=== PATIENT | male | born 1960 | race Hispanic/Latino ===

== ENCOUNTER 2019-05-30 09:28 | Outpatient (CLI) | payer OTHER ==
[2019-05-30 11:11] LABS: Mean Corpuscular HGB CONC 34.8 g/dL (32.0-36.0); Mean Corpuscular Hemoglobin 32.9 pg (27.0-31.0); Mean Corpuscular Volume 94.5 fL (78.0-98.0); Mean Platelet Volume 9.2 fL (7.4-10.4); Platelet Count 220 thou/uL (130-400); RBC Distribution Width 11.8 % (11.5-14.5); Red Blood Cell (RBC) Count 4.87 mill/uL (4.70-6.10)
[2019-05-30 11:12] LABS: Bacteria/HPF None Seen HPF (None Seen); Bilirubin Negative (Negative); Blood, Urine Negative (Negative); Clarity Clear (Clear); Glucose, Urine (Dipstick) Normal (Negative); Leukocyte Negative Leu/uL (Negative); Nitrite Negative (Negative); Protein, Urine (Dipstick) Negative (Neg-Trace); RBC/HPF 0-3 HPF (0-3); Squamous Epithelial None Seen HPF (0-3); Urobilinogen Normal mg/dL (Less than 2); WBC/HPF 0-3 HPF (0-3)
[2019-05-30 11:16] LABS: INR-International Normal Ratio 0.9; PTT 25.2 SEC (22.9-36.1); Prothrombin Time 12.1 SEC (12.0-14.7)
[2019-05-30 11:25] LABS: Anion Gap 15 mmol/L (10-20); BUN (Urea Nitrogen) 12 mg/dL (8.4-25.7); Calc. Creatinine Clearance 0 mL/min (70-130); Calcium 9.9 mg/dL (7.8-10.44); Carbon Dioxide 24 mmol/L (22-29); Chloride 105 mmol/L (98-107); Estimated GFR-MDRD 70; Glucose 102 mg/dL (70-105); Potassium 4.2 mmol/L (3.5-5.1); Sodium 140 mmol/L (136-145)
== END 2019-05-30 09:29 | disposition home or self-care (01) ==
LOC: LABBT 09:28
PROVIDERS: ATTEND Urology
DX: Z01.818 Encounter for other preprocedural examination (principal); N40.0 Benign prostatic hyperplasia without lower urinary tract symptoms
CPT/HCPCS: 80048; 81001; 85027; 85610; 85730; 87086; 93005; 93010

== ENCOUNTER 2019-06-03 06:39 | Day surgery (SDC) | payer OTHER ==
[2019-05-30 09:48] VITALS: BMI 29.1
[2019-06-03] MEDS ORDERED: Levofloxacin 500 mg/D5W 100 ml Premix Bag ONE (07:09)
[2019-06-03] MEDS ORDERED: Fentanyl 100 MCG/2 ML VIAL ONE (09:08)
[2019-06-03] MEDS ORDERED: Propofol 500 MG/50 ML VIAL ONE (09:08)
[2019-06-03] MEDS ORDERED: Phenazopyridine HCl 97.5 MG TABLET ONE (10:17)
--- NOTE | 2019-06-03 11:33 | OP ---
DATE OF PROCEDURE: 06/03/2019 SERVICE: Urology. PREOPERATIVE DIAGNOSIS: BPH with urinary obstruction. POSTOPERATIVE DIAGNOSIS: BPH with urinary obstruction. PROCEDURE PERFORMED: UroLift with six implants. INDICATION FOR PROCEDURE: Mr. Rodrigues is a 59-year-old male, who initially presented to me for voiding problems. He is currently not taking any prostate medications nor does he want to. We discussed treatment with the UroLift procedure with risks and benefits discussed and he has agreed to proceed forward. DESCRIPTION OF PROCEDURE: After identification of armband and verification of consent, the patient was brought back to the operating room, where he underwent total intravenous anesthesia. He was then placed in dorsal lithotomy position and prepped and draped in usual sterile fashion. After appropriate time-out, a lubricated 21-Chadian rigid cystoscope with visual obturator was passed through the urethra into the bladder. The prostate did show hypertrophy with some elevation of the bladder neck. The initial implant was first placed at the left side towards the bladder neck by switching out for the UroLift deploying device. This was positioned behind the bladder neck to allow for correct deployment of the steel tab. The safety was taken off after compression was achieved and the blue trigger was squeezed to fire the needle. The dangelo trigger was then squeezed to retract the device and deploy the Nitinol tab. The device was then advanced forward until the white line was in the keyhole and the release to deploy the steel tab performed through the urethral implant. This demonstrated nice compression of the lateral lobe without the steel tab being too close to the bladder neck. This procedure was then repeated again on the right side near the patient's bladder neck and again to apical implants on the left and right. Upon completion, the lateral lobes were completely out of the way, but there was a cat-eye effect with some draping of the anterior prostate. Therefore, we elected to put two more implants in penitentiary between the apical and distal implants anteriorly at 10 and 2 o'clock. This was slightly modified by deploying the needle before compression to avoid bone strikes. This resulted in a nice anterior elevation of the prostate and complete unobstruction of the prostate. Satisfied with the appearance of the prostate at this point, the UroLift device was removed and an 18-Chadian Bailey catheter was placed into the patient's bladder, 10 mL of sterile water was placed into the balloon and this hooked up to gravity drainage. The patient was then awakened and taken to Day Stay for recovery in stable condition. COMPLICATIONS: None. ESTIMATED BLOOD LOSS: Blood. RETAINED TUBES AND DRAINS: 18-Chadian Bailey catheter. SPECIMENS: None. IMPLANTS: Six implants used in total. DISPOSITION: The patient will undergo a void trial in the recovery area. Once he has demonstrated adequate ability to void and his urine is not too bloody, he can be discharged without a catheter and follow up with me on an outpatient basis. Job ID: [id number]
== END 2019-06-03 13:05 | disposition home or self-care (01) ==
LOC: SDC 06:39
PROVIDERS: ATTEND Urology
PROC: 0T7D8DZ Dilation of Urethra with Intraluminal Device, Via Natural or Artificial Opening Endoscopic (ICD-10-PCS; principal; 2019-06-03)
DX: N40.1 Benign prostatic hyperplasia with lower urinary tract symptoms (principal); N13.8 Other obstructive and reflux uropathy; I10 Essential (primary) hypertension; I48.0 Paroxysmal atrial fibrillation; E78.1 Pure hyperglyceridemia; M77.11 Lateral epicondylitis, right elbow; Z85.72 Personal history of non-Hodgkin lymphomas; Z79.82 Long term (current) use of aspirin; Z79.899 Other long term (current) drug therapy
CPT/HCPCS: C1889; J0131; J1956; J2704; J3010

== ENCOUNTER 2025-05-11 13:04 | Outpatient (CLI) | payer BC ==
[2025-05-11 16:29] LABS: #Basophils 0.03 10x3/uL (0.0-0.2); #Eosinophils 0.13 10x3/uL (0.0-0.7); #Monocytes 0.87 10x3/uL (0.11-0.59); #Neutrophils 3.57 10x3/uL (1.40-6.50); %Basophils 0.5 % (0.0-1.0); %Eosinophils 2.0 % (0.0-10.0); %Lymphocytes 29.8 % (21.0-51.0); %Monocytes 13.2 % (0.0-10.0); %Neutrophils 54.3 % (42.0-75.0); Hematocrit 44.6 % (42.0-52.0); Hemoglobin 14.9 g/dL (14.0-18.0); Mean Corpuscular Hemoglobin 31.0 pg (27.0-31.0); Mean Corpuscular Volume 92.9 fL (78.0-98.0); Platelet Count 212 10x3/uL (130-400); Red Blood Cell (RBC) Count 4.80 mill/uL (4.70-6.10); White Blood Cell (WBC) Count 6.57 10x3/uL (4.8-10.8)
[2025-05-11 16:42] LABS: INR-International Normal Ratio 1.0; Prothrombin Time 12.8 sec (12.0-14.7)
[2025-05-11 16:43] LABS: PTT 25.7 sec (22.9-36.1)
[2025-05-11 16:45] LABS: ALT (SGPT) 44 U/L (Less than 45); AST (SGOT) 37 U/L (11-34); Albumin 4.2 g/dL (3.1-4.5); Alkaline Phosphatase 86 U/L (40-110); Anion Gap 16 mmol/L (10-20); BUN (Urea Nitrogen) 11 mg/dL (8.4-25.7); Bilirubin, Total 0.9 mg/dL (0.3-1.2); Calc. Creatinine Clearance 0 mL/min (70-130); Calcium 9.4 mg/dL (7.8-10.44); Carbon Dioxide 24 mmol/L (23-31); Chloride 105 mmol/L (98-107); Globulin 3.3 g/dL (2.4-3.5); Glucose 90 mg/dL (80-115); Potassium 3.9 mmol/L (3.5-5.1); Sodium 141 mmol/L (136-145)
[2025-05-11 17:27] LABS: Bacteria/HPF None Seen HPF (None Seen); Glucose, Urine (Dipstick) Normal (Negative); Leukocyte Negative Leu/uL (Negative); Protein, Urine (Dipstick) Negative (Neg-Trace); RBC/HPF 0-3 HPF (0-3); Specific Gravity, Urine 1.018 (1.002-1.036); WBC/HPF 0-3 HPF (0-3)
== END 2025-05-11 13:05 | disposition home or self-care (01) ==
LOC: LABBT 13:04
PROVIDERS: ATTEND Urology
DX: Z01.818 Encounter for other preprocedural examination (principal); C61 Malignant neoplasm of prostate; R97.20 Elevated prostate specific antigen [PSA]; N40.1 Benign prostatic hyperplasia with lower urinary tract symptoms; R39.11 Hesitancy of micturition; Z85.72 Personal history of non-Hodgkin lymphomas
CPT/HCPCS: 71046; 80053; 81001; 85025; 85610; 85730; 86850; 86900; 86901; 87086; 93005; 93010